=== PATIENT | male | born 1950 | race Caucasian/White ===

== ENCOUNTER 2018-03-25 18:28 | Inpatient (IN) | payer MEDICARE, OTHER ==
[~2018-03-25] VITALS: Ht 177.8 cm; Wt 87.3 kg
[~2018-03-25 18:28] MED LIST: ATOR20TA9 PO; CLOP75TA52 PO; FURO-93 PO; HYDR25TA11 PO; INSU100V13 SQ; INSU100V14; ISOS30TA21 PO; LISI5TAB7 PO; METO25TA91 PO; OXYC-302 PO; RIVA10TA PO
[2018-03-25] MEDS ORDERED: ALBUTEROL SULFATE 2.5 MG/3 ML ONE (18:56)
[2018-03-25] MEDS ORDERED: methylPREDNISolone SOD SUCC 125 MG/2 ML IVP ONE (19:00)
[2018-03-25] MEDS ORDERED: AZITHROMYCIN 500 MG in SODIUM CHLORIDE 0.9% 250 ML IV ONE (19:00)
[2018-03-25] MEDS ORDERED: SODIUM CHLORIDE FLUSH 10ML SYR IVF ONE (19:00)
[2018-03-25 19:16] LABS: BASOPHILS # (AUTO) 0.04 x10^3/uL (0-0.1); BASOPHILS % (AUTO) 1 % (0-1); EOSINOPHILS # (AUTO) 0.13 x10^3/uL (0-0.4); EOSINOPHILS % (AUTO) 2 % (1-7); LYMPHOCYTES # (AUTO) 1.88 x10^3/uL (1-3.4); LYMPHOCYTES % (AUTO) 24 % (22-44); MD NO; MEAN CORPUSCULAR HEMOGLOBIN 26.1 pg (27.5-34.5); MEAN CORPUSCULAR HGB CONC 33.1 g/dL (33.2-36.2); MEAN CORPUSCULAR VOLUME 78.9 fL (81-97); MEAN PLATELET VOLUME 7.1 fL (7.4-10.4); MONOCYTES # (AUTO) 0.48 x10^3/uL (0.2-0.8); MONOCYTES % (AUTO) 6 % (2-9); NEUTROPHILS % (AUTO) 68 % (42-75); PLATELET COUNT 418 x10^3/uL (130-400); RED BLOOD COUNT 3.94 x10^6/uL (4.38-5.82); RED CELL DISTRIBUTION WIDTH 18.1 % (9.4-14.8)
[2018-03-25 19:25] LABS: ALANINE AMINOTRANSFERASE 22 U/L (12-78); ALBUMIN 2.3 g/dL (3.4-5.0); ANION GAP 7 mmol/L (5-15); CALCIUM 7.9 mg/dL (8.5-10.1); CHLORIDE 115 mmol/L (98-107); CREATININE 2.61 mg/dL (0.7-1.3)
[2018-03-25 19:29] LABS: ALKALINE PHOSPHATASE 170 U/L (45-117); BILIRUBIN,TOTAL 0.2 mg/dL (0.2-1.0); TOTAL PROTEIN 6.2 g/dL (6.4-8.2); TROPONIN I < 0.015 ng/mL (0.000-0.045)
[2018-03-25] MEDS ORDERED: FUROSEMIDE 40 MG/4 ML ONE (19:51)
[2018-03-25] MEDS ORDERED: methylPREDNISolone SOD SUCC 125 MG/2 ML ONE (19:52)
[2018-03-25] MEDS ORDERED: FUROSEMIDE 40 MG/4 ML IV ONE (20:00)
[2018-03-25] MEDS ORDERED: INSU100V8 SQ (20:26)
[2018-03-25] MEDS ORDERED: BISACODYL 10 MG SUPP PR PRN (20:30)
[2018-03-25] MEDS ORDERED: DOCUSATE 100 MG CAPSULE PO PRN (20:30)
[2018-03-25] MEDS ORDERED: APIX5TAB PO (20:30)
[2018-03-25] MEDS ORDERED: AMLO10TA2 PO (20:30)
[2018-03-25] MEDS ORDERED: HEPARIN 5,000 UNITS/ML, 1ML SQ SCH (20:30)
[2018-03-25] MEDS ORDERED: hydrALAzine 20 MG/ML, 1ML IVPush PRN (20:30)
[2018-03-25] MEDS ORDERED: BACL20TA PO (20:30)
[2018-03-25] MEDS ORDERED: POLYETHYLENE GLYCOL 17 GM PACKET PO PRN (20:30)
[2018-03-25] MEDS ORDERED: ONDANSETRON 2MG/ML, 2ML IVPush PRN (20:30)
[2018-03-25] MEDS ORDERED: ONDANSETRON ODT 4 MG PO PRN (20:30)
[2018-03-25] MEDS ORDERED: PROMETHAZINE 25 MG/ML, 1ML IM PRN (20:30)
[2018-03-25 20:45] VITALS: BP 193/85
[2018-03-25] MEDS ORDERED: methylPREDNISolone SOD SUCC 125 MG/2 ML IVPush SCH (21:00)
[2018-03-25] MEDS ORDERED: FERROUS GLUCONATE 324 MG TABLET PO SCH (21:00)
[2018-03-25] MEDS ORDERED: INSULIN GLARGINE 100 UNITS/ML, PEN SQ-INSULIN SCH (21:00)
[2018-03-25 21:44] LABS: FREE T4 (FREE THYROXINE) 0.97 ng/dL (0.76-1.46); THYROID STIMULATING HORMONE 2.17 mIU/L (0.358-3.740)
[2018-03-25 21:44] LABS: MICROSCOPIC INDICATED
[2018-03-25 21:45] LABS: CULTURE INDICATED? NO
[2018-03-25] MEDS: BACLOFEN 10 MG TABLET PO SCH (22:12)
[2018-03-25] MEDS: morphine SULFATE 10 MG/ML, 1ML IVPush PRN (22:12)
[2018-03-25] MEDS: NICOTINE 14MG/24 HR PATCH.TD24 TD SCH (22:12)
[2018-03-25] MEDS: APIXABAN 5 MG TABLET PO SCH (22:12)
[2018-03-25] MEDS ORDERED: ALBUTEROL SULFATE 2.5 MG/3 ML NPPB PRN (22:30)
[2018-03-25] MEDS: INSULIN LISPRO 100 UNITS/ML, PEN SQ-INSULIN SCH (22:33)
[2018-03-26] MEDS ORDERED: DIPHENHYDRAMINE 50 MG/ML, 1ML ONE (00:56)
[2018-03-26] MEDS ORDERED: EPINEPHRINE SYRINGE 0.1 MG/ML, 10ML ONE (01:03)
[2018-03-26 01:10] LABS: TROPONIN I < 0.015 ng/mL (0.000-0.045)
[2018-03-26 01:27] VITALS: BP 193/85
[2018-03-26] MEDS ORDERED: EPINEPHRINE 1 MG/ML, 1ML IM ONE ×3 (01:30→02:30)
[2018-03-26 02:03] VITALS: BP 180/99
[2018-03-26] MEDS ORDERED: FAMOTIDINE 20 MG/2 ML IVPush PRN (02:30)
[2018-03-26] MEDS ORDERED: hydrOXYzine 50 MG/ML IM PRN (02:30)
[2018-03-26] MEDS ORDERED: hydrOXYzine 25 MG/ML IM PRN (02:30)
[2018-03-26] MEDS: morphine SULFATE 10 MG/ML, 1ML IVPush PRN ×6 (03:17→22:55)
[2018-03-26 07:15] VITALS: BP 197/97
[2018-03-26] MEDS: INSULIN LISPRO 100 UNITS/ML, PEN SQ-INSULIN SCH ×5 (08:03→22:26)
[2018-03-26] MEDS: APIXABAN 5 MG TABLET PO SCH ×2 (08:03→21:53)
[2018-03-26] MEDS: FLUTICASONE/VILANTEROL 200-25MCG/INH INH SCH (08:04)
[2018-03-26] MEDS: BACLOFEN 10 MG TABLET PO SCH ×2 (08:04→21:53)
[2018-03-26] MEDS: DOXYCYCLINE 100MG TABLET PO SCH ×2 (08:04→21:53)
[2018-03-26] MEDS: ISOSORBIDE MONONITRATE ER 30 MG TABLET PO SCH (08:04)
[2018-03-26] MEDS: AMLODIPINE 5 MG TABLET PO SCH (08:04)
[2018-03-26 08:27] LABS: BASOPHILS % (AUTO) 0 % (0-1); EOSINOPHILS % (AUTO) 0 % (1-7); LYMPHOCYTES # (AUTO) 0.43 x10^3/uL (1-3.4); LYMPHOCYTES % (AUTO) 6 % (22-44); MD NO; MEAN CORPUSCULAR HEMOGLOBIN 25.3 pg (27.5-34.5); MEAN CORPUSCULAR HGB CONC 32.5 g/dL (33.2-36.2); MEAN CORPUSCULAR VOLUME 77.9 fL (81-97); MONOCYTES # (AUTO) 0.03 x10^3/uL (0.2-0.8); MONOCYTES % (AUTO) 0 % (2-9); NEUTROPHILS # (AUTO) 6.85 x10^3/uL (1.8-6.8); NEUTROPHILS % (AUTO) 94 % (42-75); PLATELET COUNT 474 x10^3/uL (130-400); RED BLOOD COUNT 3.96 x10^6/uL (4.38-5.82)
[2018-03-26 08:46] LABS: TROPONIN I < 0.015 ng/mL (0.000-0.045)
[2018-03-26 08:47] LABS: ALANINE AMINOTRANSFERASE 23 U/L (12-78); ALBUMIN 2.5 g/dL (3.4-5.0); ANION GAP 10 mmol/L (5-15); CALCIUM 8.2 mg/dL (8.5-10.1); CHLORIDE 111 mmol/L (98-107); TRIGLYCERIDES 80 mg/dL (50-200); VLDL CHOLESTEROL 16 mg/dL (0-25)
[2018-03-26 08:50] LABS: ALKALINE PHOSPHATASE 182 U/L (45-117); BILIRUBIN,TOTAL 0.2 mg/dL (0.2-1.0); CHOL/HDL RATIO 4.8; CHOLESTEROL, TOTAL 249 mg/dL (140-239); CREATININE 3.05 mg/dL (0.7-1.3); HDL CHOL % 21 % (26-37); HDL CHOLESTEROL (DIRECT) 52 mg/dL (40-60); LDL CHOLESTEROL,CALCULATED 181 mg/dL (54-169); LDL/HDL RATIO 3.5 (0.5-3.0); TOTAL PROTEIN 6.9 g/dL (6.4-8.2)
[2018-03-26] MEDS: ALBUTEROL SULFATE 2.5 MG/3 ML NPPB SCH ×4 (08:53→19:26)
[2018-03-26] MEDS ORDERED: FUROSEMIDE 20 MG/2 ML IV SCH (09:00)
[2018-03-26] MEDS ORDERED: LABETALOL 5MG/ML, 20ML IVPush PRN (11:30)
[2018-03-26] MEDS: LOSARTAN 50MG TABLET PO SCH (11:39)
[2018-03-26] MEDS: SODIUM CHLORIDE 0.9% 1,000 ML IV SCH (11:39)
[2018-03-26] MEDS ORDERED: INSULIN GLARGINE 100 UNITS/ML, PEN SQ-INSULIN ONE (12:30)
[2018-03-26 14:36] VITALS: BP 149/74
[2018-03-26] MEDS: FERROUS SULFATE 325 MG TABLET PO SCH (16:41)
[2018-03-26 17:15] LABS: ANION GAP 10 mmol/L (5-15); CALCIUM 7.9 mg/dL (8.5-10.1); CHLORIDE 109 mmol/L (98-107); CREATININE 3.29 mg/dL (0.7-1.3)
[2018-03-26] MEDS ORDERED: INSULIN GLARGINE 100 UNITS/ML, PEN SQ-INSULIN SCH (21:00)
[2018-03-26 21:13] VITALS: BP 155/78
[2018-03-26] MEDS: NICOTINE 14MG/24 HR PATCH.TD24 TD SCH (21:54)
[2018-03-27 01:38] VITALS: BP 134/80
[2018-03-27] MEDS: SODIUM CHLORIDE 0.9% 1,000 ML IV SCH (02:07)
[2018-03-27 05:42] LABS: ANION GAP 10 mmol/L (5-15); CALCIUM 8.1 mg/dL (8.5-10.1); CHLORIDE 111 mmol/L (98-107); CREATININE 3.16 mg/dL (0.7-1.3)
[2018-03-27] MEDS: ALBUTEROL SULFATE 2.5 MG/3 ML NPPB SCH ×4 (07:40→19:40)
[2018-03-27 08:04] VITALS: BP 164/84
[2018-03-27] MEDS: INSULIN LISPRO 100 UNITS/ML, PEN SQ-INSULIN SCH ×8 (08:23→21:00)
[2018-03-27] MEDS: FERROUS SULFATE 325 MG TABLET PO SCH ×2 (09:39→16:44)
[2018-03-27] MEDS: LOSARTAN 50MG TABLET PO SCH (09:39)
[2018-03-27] MEDS: AMLODIPINE 5 MG TABLET PO SCH (09:40)
[2018-03-27] MEDS: DOXYCYCLINE 100MG TABLET PO SCH ×2 (09:40→20:26)
[2018-03-27] MEDS: ISOSORBIDE MONONITRATE ER 30 MG TABLET PO SCH (09:40)
[2018-03-27] MEDS: APIXABAN 5 MG TABLET PO SCH ×2 (09:40→20:26)
[2018-03-27] MEDS: BACLOFEN 10 MG TABLET PO SCH ×2 (09:40→20:26)
[2018-03-27] MEDS: morphine SULFATE 10 MG/ML, 1ML IVPush PRN ×2 (11:00→16:44)
[2018-03-27] MEDS: FLUTICASONE/VILANTEROL 200-25MCG/INH INH SCH (11:00)
[2018-03-27 14:04] VITALS: BP 166/85
[2018-03-27] MEDS ORDERED: LORazepam 2 MG/ML, 1ML IVPush ONE (15:00)
[2018-03-27 15:06] VITALS: BP 165/95
[2018-03-27 20:25] VITALS: BP 156/80
[2018-03-27] MEDS: NICOTINE 14MG/24 HR PATCH.TD24 TD SCH ×2 (20:26→20:30)
[2018-03-27] MEDS ORDERED: INSULIN GLARGINE 100 UNITS/ML, PEN SQ-INSULIN SCH (21:00)
[2018-03-27 22:02] VITALS: BP 156/80
[2018-03-28 03:49] VITALS: BP 137/77
[2018-03-28 06:01] LABS: ANION GAP 7 mmol/L (5-15); CALCIUM 8.1 mg/dL (8.5-10.1); CHLORIDE 115 mmol/L (98-107); CREATININE 2.92 mg/dL (0.7-1.3)
[2018-03-28] MEDS ORDERED: DEXTROSE 4 GM TAB.CHEW PO PRN (07:00)
[2018-03-28] MEDS ORDERED: GLUCAGON 1 MG IM PRN (07:00)
[2018-03-28] MEDS ORDERED: DEXTROSE 50%, 50ML SYRINGE IVPush PRN (07:00)
[2018-03-28 07:25] VITALS: BP 162/92
[2018-03-28] MEDS: ALBUTEROL SULFATE 2.5 MG/3 ML NPPB SCH ×4 (07:43→19:26)
[2018-03-28] MEDS: INSULIN LISPRO 100 UNITS/ML, PEN SQ-INSULIN SCH ×8 (07:48→20:21)
[2018-03-28] MEDS: AMLODIPINE 5 MG TABLET PO SCH (08:35)
[2018-03-28] MEDS: BACLOFEN 10 MG TABLET PO SCH ×2 (08:35→20:47)
[2018-03-28] MEDS: ISOSORBIDE MONONITRATE ER 30 MG TABLET PO SCH (08:36)
[2018-03-28] MEDS: APIXABAN 5 MG TABLET PO SCH ×2 (08:36→20:47)
[2018-03-28] MEDS: LOSARTAN 50MG TABLET PO SCH (08:36)
[2018-03-28] MEDS: FERROUS SULFATE 325 MG TABLET PO SCH ×2 (08:36→16:47)
[2018-03-28] MEDS: DOXYCYCLINE 100MG TABLET PO SCH ×2 (08:36→20:47)
[2018-03-28] MEDS: SODIUM CHLORIDE FLUSH 10ML SYR IVF SCH ×2 (08:37→20:49)
[2018-03-28] MEDS: FLUTICASONE/VILANTEROL 200-25MCG/INH INH SCH (08:37)
[2018-03-28] MEDS: CEFTRIAXONE 1,000 MG in SODIUM CHLORIDE 0.9% 50 ML IV SCH (10:46)
[2018-03-28 13:35] VITALS: BP 147/84
[2018-03-28 20:06] VITALS: BP 173/95
[2018-03-28] MEDS: NICOTINE 14MG/24 HR PATCH.TD24 TD SCH (20:47)
[2018-03-28] MEDS ORDERED: INSULIN GLARGINE 100 UNITS/ML, PEN SQ-INSULIN SCH (21:00)
[2018-03-28 21:09] VITALS: BP 168/91
[2018-03-28 21:10] VITALS: BP 159/80
[2018-03-29 00:47] VITALS: BP 147/80
[2018-03-29] MEDS: ALBUTEROL SULFATE 2.5 MG/3 ML NPPB SCH ×4 (01:37→15:00)
[2018-03-29 07:15] VITALS: BP 179/94
[2018-03-29] MEDS: INSULIN LISPRO 100 UNITS/ML, PEN SQ-INSULIN SCH ×4 (07:26→12:44)
[2018-03-29] MEDS: LOSARTAN 50MG TABLET PO SCH (08:23)
[2018-03-29] MEDS: FERROUS SULFATE 325 MG TABLET PO SCH (08:23)
[2018-03-29] MEDS: AMLODIPINE 5 MG TABLET PO SCH (08:24)
[2018-03-29] MEDS: APIXABAN 5 MG TABLET PO SCH (08:24)
[2018-03-29] MEDS: DOXYCYCLINE 100MG TABLET PO SCH (08:24)
[2018-03-29] MEDS: FLUTICASONE/VILANTEROL 200-25MCG/INH INH SCH (08:25)
[2018-03-29] MEDS: SODIUM CHLORIDE FLUSH 10ML SYR IVF SCH (08:25)
[2018-03-29] MEDS: BACLOFEN 10 MG TABLET PO SCH (08:25)
[2018-03-29] MEDS ORDERED: ISOSORBIDE MONONITRATE ER 60 MG TABLET PO SCH (09:00)
[2018-03-29] MEDS: CEFTRIAXONE 1,000 MG in SODIUM CHLORIDE 0.9% 50 ML IV SCH (10:06)
[2018-03-29 11:08] LABS: ANION GAP 6 mmol/L (5-15); CALCIUM 7.9 mg/dL (8.5-10.1); CHLORIDE 119 mmol/L (98-107); CREATININE 2.98 mg/dL (0.7-1.3)
[2018-03-29] MEDS ORDERED: CARV6.252 PO (12:44)
[2018-03-29] MEDS ORDERED: ISOS60TA36 PO (12:44)
[2018-03-29] MEDS ORDERED: INSU100I11 SQ-INSULIN (12:44)
[2018-03-29] MEDS ORDERED: FLUT1BLS INH (12:44)
[2018-03-29] MEDS ORDERED: DOXY100T PO (12:44)
[2018-03-29] MEDS ORDERED: INSU100I13 SQ-INSULIN (12:44)
[2018-03-29] MEDS ORDERED: CEFD300C37 PO (12:44)
[2018-03-29] MEDS ORDERED: FERR-51 PO (12:44)
[2018-03-29] MEDS ORDERED: LOSA50TA2 PO (12:44)
[2018-03-29] MEDS ORDERED: DOCU-131 PO (12:44)
[2018-03-29] MEDS ORDERED: AMLO5TAB2 PO (12:44)
[2018-03-29] MEDS ORDERED: ALBU8.5H8 INH (12:46)
[2018-03-29] MEDS ORDERED: ACET-1600 PO (12:53)
== END 2018-03-29 16:40 | disposition home or self-care (01) | DRG 871 ==
LOC: ED 19:47 → EDIP 20:17 → 4WST 20:52
PROVIDERS: ADMIT Internal Medicine; ATTEND Internal Medicine
DX: A41.9 Sepsis, unspecified organism (principal); N17.0 Acute kidney failure with tubular necrosis; I50.33 Acute on chronic diastolic (congestive) heart failure; J18.9 Pneumonia, unspecified organism; I13.0 Hypertensive heart and chronic kidney disease with heart failure and stage 1 through stage 4 chronic kidney disease, or unspecified chronic kidney disease; E44.0 Moderate protein-calorie malnutrition; J44.0 Chronic obstructive pulmonary disease with (acute) lower respiratory infection; J44.1 Chronic obstructive pulmonary disease with (acute) exacerbation; N18.4 Chronic kidney disease, stage 4 (severe); D63.8 Anemia in other chronic diseases classified elsewhere; Z88.6 Allergy status to analgesic agent; Z91.030 Bee allergy status; Z88.0 Allergy status to penicillin; Z88.8 Allergy status to other drugs, medicaments and biological substances; Z91.018 Allergy to other foods; D50.9 Iron deficiency anemia, unspecified; E11.22 Type 2 diabetes mellitus with diabetic chronic kidney disease; Z68.27 Body mass index [BMI] 27.0-27.9, adult; E78.5 Hyperlipidemia, unspecified; F17.210 Nicotine dependence, cigarettes, uncomplicated; I25.10 Atherosclerotic heart disease of native coronary artery without angina pectoris; I25.2 Old myocardial infarction; Z79.01 Long term (current) use of anticoagulants; Z79.4 Long term (current) use of insulin; Z82.49 Family history of ischemic heart disease and other diseases of the circulatory system; Z86.711 Personal history of pulmonary embolism; Z86.718 Personal history of other venous thrombosis and embolism; Z86.73 Personal history of transient ischemic attack (TIA), and cerebral infarction without residual deficits; Z93.0 Tracheostomy status; Z93.3 Colostomy status; Z95.5 Presence of coronary angioplasty implant and graft
CPT/HCPCS: 36415; 70450; 70551; 71045; 71046; 76770; 80048; 80053; 80061; 81001; 82607; 82728; 82962; 83036; 83540; 83550; 83605; 83735; 83880; 84100; 84439; 84443; 84484; 85025; 87040; 93005; 93306; 94640; 96374; 96375; J0171; J0456; J0696; J1940; J2405; J7613; J0360; J2060; J2270; J2930; J7030; J7050; S0028